=== PATIENT | male | born 1965 | race Caucasian/White ===

== ENCOUNTER → 2020-03-09 15:13 | Outpatient (BNVA) | payer BC, SELFPAY | PROVIDERS: Family Provider Family Medicine; PCP Family Medicine; Visit Provider Podiatrist Foot & Ankle Surgery | DX: M79.671 Pain in right foot (principal) | CPT/HCPCS: 73630 ==

== ENCOUNTER 2024-07-15 14:05 | Emergency (ER) | payer BC, SELFPAY ==
[2024-07-15 14:32] VITALS: BP 140/99; PULSE 91; RESP 16; TEMP 36.6; O2SAT 94
[2024-07-15 16:44] LABS: Basophils # 0.1 10^3/uL (0.0-0.1); Basophils % 1.1 %; Eosinophils # 0.2 10^3/uL (0.0-0.8); Eosinophils % 1.9 %; Hematocrit 51.9 % (37-53); Lymphocytes # 1.5 10^3/uL (0.8-4.8); Lymphocytes % 12.3 %; Mean Corpuscular HGB Conc 32.2 g/dL (30-55); Mean Corpuscular Hemoglobin 29.5 pg (27-33); Mean Corpuscular Volume 91.5 fl (82-101); Mean Platelet Volume 7.8 fL (7.4-10.4); Monocytes # 0.3 10^3/uL (0.2-0.9); Monocytes % 2.6 %; Neutrophils # 9.61 10^3/uL (1.8-7.7); Neutrophils % 81.3 %; Nucleated Red Blood Cells % 0 %; Platelet Count 412 10^3/cmm (157-399); Red Blood Count 5.67 10^6/uL (3.85-5.65); Red Cell Distribution Width 12.3 % (12.1-15.1); White Blood Count 11.83 10^3/uL (3.29-11.43)
[2024-07-15 17:06] VITALS: BP 149/106; PULSE 107; RESP 18; O2SAT 95
--- NOTE | 2024-07-15 17:09 | CTR_ITS ---
PROCEDURE INFORMATION: Exam: CT Head Without Contrast Exam date and time: 07/15/2024 5:38 PM Age: 58 years old Clinical indication: Pain; Headache not specified; Additional info: [place] TECHNIQUE: Imaging protocol: Computed tomography of the head without contrast. Radiation optimization: All CT scans at this facility use at least one of these dose optimization techniques: automated exposure control; mA and/or kV adjustment per patient size (includes targeted exams where dose is matched to clinical indication); or iterative reconstruction. COMPARISON: CT neck w con* [id number] 07/15/2024 5:38 PM RADIATION DOSE METRICS: Total DLP (mGy-cm): 1110.2 FINDINGS: Brain: No evidence of intra-axial or extra-axial hemorrhage. No mass effect or midline shift. Bradshaw-white differentiation is maintained. Basilar cisterns are patent. Cerebral ventricles: No hydrocephalus. Paranasal sinuses: Fluid level within the left maxillary sinus, possibly reflecting sinusitis. Mastoid air cells: The visualized mastoids and middle ears are clear. Bones: Calvarium is intact. No evidence of acute fracture. Soft tissues: No gross soft tissue abnormality. CT/CT head wo con* [id number] IMPRESSION: 1. No acute intracranial abnormality.
[2024-07-15 17:12] LABS: Alanine Aminotransferase 26 U/L (0-41); Albumin Level 4.4 g/dL (3.5-5.2); Alkaline Phosphatase 94 U/L (40-130); Anion Gap 13.2 (5-19); Aspartate Amino Transferase 19 U/L (0-40); Blood Urea Nitrogen 10 mg/dL (6-20); Calcium 9.9 mg/dL (8.5-10.5); Carbon Dioxide 31 mmol/L (22-29); Chloride 101 mmol/L (98-107); Creatinine Clr Calc Pharmacy 119.2044; Globulin 3.3 g/dL (1.3-4.6); Glomerular Filtration Rate 115.4 mL/min (90-130); Glucose 147 mg/dL (65-115); Osmolality Calculated 294 mOsm/kg (285-295); Potassium 4.2 mmol/L (3.5-5.1); Sodium 141 mmol/L (136-145); Total Bilirubin 0.4 mg/dL (0.15-1.2); Total Protein 7.7 g/dL (6.6-8.7)
--- NOTE | 2024-07-15 17:18 | ED_ITS ---
HPI - Head Injury 2 General: Chief complaint: Head Injury Stated complaint: sent from dr guidry/ infection possible in head Time Seen by Provider: 07/15/24 16:32 Source: patient Mode of arrival: ambulatory Limitations: no limitations History of Present Illness: 58-year-old male states that he has had a viral illness he states it started 2 weeks ago states he is improved but he has now been having some headaches along with some jaw pain as well. He states that his headaches come and go his headaches currently a 2 out of 10 he denies any neck stiffness he has not had any fevers this week. He states that he is had some pain and difficulty eating Associated symptoms: Reports neck pain; Deny nausea or vomiting Related Data Previous Rx's ?Medication ?Instructions ?Recorded Sole Supports #1 ea 03/09/20 Allergies Allergy/AdvReac Type Severity Reaction Status Date / Time No Known Allergies Allergy Verified 07/15/24 14:34 Review of Systems 2 Const: Reports: body aches; Denies: fever(s), chills or change in appetite Eyes: Denies: blurry vision ENMT: Denies: throat pain or dental pain Card: Denies: chest pain Resp: Denies: dyspnea GI: Denies: abdominal pain, nausea, vomiting or diarrhea Musc: Reports: neck pain; Denies: back pain Skin/Breast: Denies: rash Neuro: Reports: headache(s) PFSH ED 2 PFSH: Medical History No pertinent past medical history Family History Father Cancer Diabetes Family history of premature coronary artery disease Mother Family history of premature coronary artery disease Social History Smoking and tobacco/nicotine status: never used tobacco/nicotine Alcohol intake: current Alcohol intake frequency: other Alcohol type: other Physical Exam 2 Const: COMMON NORMALS: no acute distress, patient oriented x3 and healthy appearing HENMT: COMMON NORMALS: normocephalic and atraumatic HEAD & SCALP: n ormocephalic and atraumatic THROAT: posterior oropharynx normal Eye: COMMON NORMALS: Equal, round and reactive pupils present and EOMs intact bilaterally PUPIL: Yes Equal, round and reactive pupils present Neck/C-Spine: COMMON NORMALS: full ROM and supple Chest: COMMONS NORMALS: normal inspection of the chest Resp: COMMON NORMALS: normal respiratory effort, No retractions, No use of accessory muscles and clear to auscultation bilaterally AUSCULTATION: clear to auscultation bilaterally Cardio: COMMON NORMALS: regular rate, regular rhythm and No murmurs present (Cardio) RATE: regular rate RHYTHM: regular rhythm Extremity: COMMON NORMALS: normal to inspection and full ROM Neuro: COMMON NORMALS: patient oriented x3, moves all extremities and no focal motor deficits Psych: COMMON NORMALS: mental status grossly normal, Normal thought process present and cooperative THOUGHT PROCESS: Normal thought process present Skin: COMMON NORMALS: no rashes or lesions noted and no wounds GENERAL SKIN EXAM: no rashes or lesions noted Course 2 Vital Signs: Vital signs: Vital Signs Temperature 97.9 F 07/15/24 14:32 Pulse Rate 107 H 07/15/24 17:06 Respiratory Rate 18 07/15/24 17:06 Blood Pressure 136/107 07/15/24 18:05 Pulse Oximetry 93 07/15/24 18:05 Oxygen Delivery Me thod Room Air 07/15/24 14:32 MDM - Head Injury Medcial Decision Making Patient presents here with headache is also been having some neck and jaw tongue pain head CT showed no acute abnormalities blood works normal he has no signs of meningitis here CT did show a lesion on his tongue he states he did bite his tongue today it could be simply from that we will get him follow-up with ENT though his headaches improved here I informed him he is to follow-up with PCP and return to ER if he worsens he understands agrees to plan Medical Records I reviewed the patient's medical records. Lab Data I reviewed the patient's lab results. 07/15/24 16:25 07/15/24 16:[address] 07/15/24 17:09 IMPRESSION: 1. No acute intracranial abnormality. Neck CT 07/15/24 17:19 IMPRESSION: 1. No evidence of acute abnormality. 2. Asymmetric soft tissue prominence of the left tongue base. Correlation with direct visualization/ENT evaluation is recommended to exclude a mucosal lesion. 3. Maxillary sinus fluid levels compatible with sinusitis. 4. Atherosclerotic narrowing of the proximal left ICA secondary to eccentric noncalcified atherosclerotic plaque. Consider follow-up outpatient vascular evaluation. 5. Severe right-sided foraminal stenosis at C3-C4. Consider correlation with follow-up outpatient MRI if there is concern for neural impingement. Laboratory Results WBC 11.83 10^3/uL (3.29-11.43) H 07/15/24 16:25 RBC 5.67 10^6/uL (3.85-5.65) H 07/15/24 16:25 Hgb 16.70 g/dL (11.27-16.99) 07/15/24 16:25 Hct 51.9 % (37-53) 07/15/24 16:25 MCV 91.5 fl (82-101) 07/15/24 16:25 MCH 29.5 pg (27-33) 07/15/24 16: MCHC 32.2 g/dL (30-55) 07/15/24 16:25 RDW 12.3 % (12.1-15.1) 07/15/24 16:25 Plt Count 412 10^3/cmm (157-399) H 07/15/24 16:25 MPV 7.8 fL (7.4-10.4) 07/15/24 16:25 Neut % (Auto) 81.3 % 07/15/24 16:25 Lymph % (Auto) 12.3 % 07/15/24 16:25 [place] % (Auto) 2.6 % 07/15/24 16:25 Eos % (Auto) 1.9 % 07/15/24 16:25 Baso % (Auto) 1.1 % 07/15/24: Neut # (Auto) 9.61 10^3/uL (1.8-7.7) H 07/15/24 16:25 Lymph # (Auto) 1.5 10^3/uL (0.8-4.8) 07/15/24 16:25 [place] # (Auto) 0.3 10^3/uL (0.2-0.9) 07/15/24 16:25 Eos # (Auto) 0.2 10^3/uL (0.0-0.8) 07/15/24 16:25 Baso # (Auto) 0.1 10^3/uL (0.0-0.1) 07/15/24 16:25 Nucleated RBC % (auto) 0 % 07/15/24 16:25 Nucleated RBCs # 0.0 /100WBC 07/15/24 16:25 Sodium 141 mmol/L (136-145) 07/15/24 16:25 Potassium 4.2 mmol/L (3.5-5.1) 07/15/24 16:25 Chloride 101 mmol/L (98-107) 07/15/24 16:25 Carbon Dioxide 31 mmol/L (22-29) H 07/15/24 16:25 Anion Gap 13.2 (5-19) 07/15/24 16:25 BUN 10 mg/dL (6-20) 07/15/24 16:25 Creatinine 0.7 mg/dL (0.7-1.2) 07/15/24 16:25 GFR Calculation 115.4 mL/min (90-130) 07/15/24 16:25 Glucose 147 mg/dL (65-115) H 07/15/24 16:25 Calculated Osmolality 294 mOsm/kg (285-295) 07/15/24 16:25 Calcium 9.9 mg/dL (8.5-10.5) 07/15/24 16:25 Total Bilirubin 0.4 mg/dL (0.15-1.2) 07/15/24 16:25 AST 19 U/L (0-40) 07/15/24 16:25 ALT 26 U/L (0-41) 07/15/24 16:25 Alkaline Phosphatase 94 U/L (40-130) 07/15/24 16:25 Creatine Kinase 58 U/L (39-308) 07/15/24 16:25 C-Reactive Protein 3.0 mg/L (0.0-4.9) 07/15/24 16:25 Total Protein 7.7 g/dL (6.6-8.7) 07/15/24 16:25 Albumin 4.4 g/dL (3.5-5.2) 07/15/24 16:25 Globulin 3.3 g/dL (1.3-4.6) 07/15/24 16:25 All radiology interpretation(s) finalized by discharge Discharge Plan Discharge Patient Disposition: Home Clinical Impression: Headache, Tongue pain Condition: Stable Prescriptions: No Action (DME) Sole Supports See Rx Instructions .Route .MEDSUPPLY Qty: 1 0RF Rx Instructions: As directed Discharge Orders: Discharge ED (Routine); Ordered 07/15/24 Ordered By: Raleigh Elliott Referrals: Kulwinder Meade MD [Physician] - 4-7 days Denny Guidry MD [Primary Care Provider] - Discharge Diet: Advance as tolerated Discharge Activity: Resume usual activity Patient Instructions: General Headache (ED) Print Language: St [place] Coding Level of Care 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
--- NOTE | 2024-07-15 17:19 | CTR_ITS ---
PROCEDURE INFORMATION: Exam: CT Neck With Contrast Exam date and time: 07/15/2024 5:38 PM Age: 58 years old Clinical indication: Other: Lt mandibular pain; Additional info: Jaw pain TECHNIQUE: Imaging protocol: Computed tomography of the neck with contrast. Radiation optimization: All CT scans at this facility use at least one of these dose optimization techniques: automated exposure control; mA and/or kV adjustment per patient size (includes targeted exams where dose is matched to clinical indication); or iterative reconstruction. Contrast material: OMNIPAQUE 350; Contrast volume: 100 ml; Contrast route: INTRAVENOUS (IV); COMPARISON: CT head wo con* [id number] 07/15/2024 5:38 PM RADIATION DOSE METRICS: Total DLP (mGy-cm): 221.8 FINDINGS: Salivary glands: The parotid and submandibular glands are unremarkable. Pharynx: The nasopharynx, oropharynx and hypopharynx are patent. There is nonspecific soft tissue prominence in the region of the tongue base on the left (image 47 of series 4). Larynx: The aryepiglottic folds, glottis and paraglottic soft tissues are grossly unremarkable. Thyroid: Grossly unremarkable. Trachea: The visualized upper airway is patent. Lungs: The visualized lung apices are clear. Lymph nodes: No evidence of adenopathy. Vasculature: The origins of the great vessels are patent. The visualized aortic arch is unremarkable. The visualized carotid and vertebral arteries are grossly patent. Moderate approximately 30% narrowing of the proximal left ICA secondary to eccentric noncalcified atherosclerotic plaque. The visualized internal jugular veins are patent without evidence of thrombosis. Bones/joints: No evidence of acute fracture or subluxation of the cervical spine. Moderate multilevel uncovertebral hypertrophy and facet arthrosis. Severe right-sided foraminal stenosis at C3-C4. Chronic fracture of the tip of the T1 spinous process. Bilateral maxillary sinus fluid levels, [id number]. Moderate ethmoid sinus mucosal thickening bilaterally. CT/CT neck w con* [id number] IMPRESSION: 1. No evidence of acute abnormality. 2. Asymmetric soft tissue prominence of the left tongue base. Correlation with direct visualization/ENT evaluation is recommended to exclude a mucosal lesion. 3. Maxillary sinus fluid levels compatible with sinusitis. 4. Atherosclerotic narrowing of the proximal left ICA secondary to eccentric noncalcified atherosclerotic plaque. Consider follow-up outpatient vascular evaluation. 5. Severe right-sided foraminal stenosis at C3-C4. Consider correlation with follow-up outpatient MRI if there is concern for neural impingement.
[2024-07-15] MEDS: iohexol 350 mg/mL 500 mL Btl (per mL) IV (17:50)
[2024-07-15 17:55] LABS: Creatine Phosphokinase 58 U/L (39-308)
[2024-07-15] MEDS: ketorolac 30 mg/mL INJ 15 MG IVP (17:56)
[2024-07-15] MEDS: sodium chloride 0.9% 1,000 ML 999 ML IV (17:56)
[2024-07-15 18:05] VITALS: BP 136/107; O2SAT 93
--- NOTE | 2024-07-16 07:37 | DCPLANNER ---
sent referral to ENT Dr. Meade for follow up
== END 2024-07-15 19:20 | disposition home or self-care (01) ==
PROVIDERS: Emergency Provider Emergency Medicine; PCP Family Medicine
DX: R51.9 Headache, unspecified (principal); K14.6 Glossodynia
CPT/HCPCS: 36415; 70450; 70491; 80053; 82550; 85025; 86140; 96374; 99285; J1885; J7030

== ENCOUNTER 2024-08-01 07:05 | Outpatient (CLI) | payer BC, SELFPAY ==
--- NOTE | 2024-08-01 07:31 | MR_ITS ---
WS: [id number] MRI NECK WITH CONTRAST TECHNIQUE: Noncontrast axial T1, axial T2 FSE fat sat, coronal T2 fat sat, coronal T1, coronal T1 fat sat, sagittal T2 fat sat, plus contrast enhanced coronal, sagittal, and axial T1 fat sat images obtained. CLINICAL INFORMATION: NEOPLASM UNCERTAIN BEHAVIOR OROPHARYNX COMPARISON: Neck CT FINDINGS: Enhancing tissue at the LEFT LEFT greater than RIGHT tongue base filling the LEFT vallecula suspicious for tongue base neoplasm. In addition, prevertebral enhancing soft tissue anterior to the C3-4 vertebral bodies in the posterior pharynx at this level. Recommend direct visualization and biopsy. Normal glottis and subglottic airway. Normal posterior fossa. Mucosal thickening LEFT greater than RIGHT mastoid air cells. Mucosal thickening in the paranasal sinuses. Mild diffuse eccentric narrowing of the LEFT ICA at the skull base extending to the petrous segment compatible with intramural hematoma with ICA dissection. ICA remains patent. No high-grade flow-limiting stenosis visualized on this study. MR/MR orbit face neck wo/w* [id number] IMPRESSION: 1. 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 Mild narrowing of the ICA although no flow-limiting stenosis. 2. Enhancing tissue at the LEFT greater than RIGHT tongue base extending into and filling the LEFT vallecula suspicious for tongue base neoplasm. In addition prevertebral enhancing soft tissue anterior to the C3-4 vertebral bodies in th e posterior pharynx at this level. Recommend direct visualization and biopsy. 3. Asymmetric enlargement of the LEFT greater than RIGHT submandibular glands although normal enhancement 4. No other changes from the recent CT Notified Alaina CERRATO at 08/02/2024 9:32 AM.
[2024-08-01] MEDS: gadobenate dimeglumine 20 mL vial IV (08:24)
== END 2024-08-01 07:06 | disposition home or self-care (01) ==
PROVIDERS: PCP Family Medicine; Visit Provider Otolaryngology
DX: D37.05 Neoplasm of uncertain behavior of pharynx (principal); I77.71 Dissection of carotid artery; R22.0 Localized swelling, mass and lump, head; K11.1 Hypertrophy of salivary gland; H70.93 Unspecified mastoiditis, bilateral; J34.89 Other specified disorders of nose and nasal sinuses; I65.22 Occlusion and stenosis of left carotid artery
CPT/HCPCS: 70543

== ENCOUNTER 2024-08-02 10:20 | Emergency (ER) | payer BC, SELFPAY ==
[2024-08-02 10:39] VITALS: BP 140/118; PULSE 91; RESP 18; TEMP 36.7; O2SAT 99; BMI 25.8
--- NOTE | 2024-08-02 10:45 | ECG_ITS ---
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 Measurements Intervals Stopover Rate: 90 P: 18 TN: 171 QRS: -13 QRSD: 95 T: 21 QT: 342 QTc: 420 Interpretive Statements SINUS RHYTHM POSSIBLE ANTERIOR MYOCARDIAL INFARCTION , PROBABLY OLD [30 ms Q WAVE IN V3/V4, OR R < 0.2 mV IN V4] No previous ECG available for comparison Electronically Signed On 08-02-2024 19:02:27 CDT by Kip Wilhelm M.D. [email or web address]
[2024-08-02 11:17] LABS: Basophils # 0.1 10^3/uL (0.0-0.1); Basophils % 1.9 %; Eosinophils # 0.3 10^3/uL (0.0-0.8); Eosinophils % 4.5 %; Hematocrit 47.6 % (37-53); Lymphocytes # 1.6 10^3/uL (0.8-4.8); Mean Corpuscular HGB Conc 32.6 g/dL (30-55); Mean Corpuscular Hemoglobin 29.9 pg (27-33); Mean Corpuscular Volume 91.9 fl (82-101); Mean Platelet Volume 8.2 fL (7.4-10.4); Monocytes # 0.5 10^3/uL (0.2-0.9); Monocytes % 8.6 %; Neutrophils # 3.29 10^3/uL (1.8-7.7); Neutrophils % 56.8 %; Nucleated Red Blood Cells % 0 %; Platelet Count 267 10^3/cmm (157-399); Red Blood Count 5.18 10^6/uL (3.85-5.65); Red Cell Distribution Width 12.4 % (12.1-15.1); White Blood Count 5.79 10^3/uL (3.29-11.43)
--- NOTE | 2024-08-02 11:23 | W.ED.NECK ---
HPI - Neck Pain/Injury General: Chief Complaint: Neck Pain/Injury Stated Complaint: left side of head swollen Time Seen by Provider: 08/02/24 10:37 History of Present Illness: 59-year-old man who presents emergency room for an abnormal MRI that was done as an outpatient. He had originally had a CT done because he was having left-sided headaches and neck pain. This was read as having mild stenosis and there was concern for a mass of the tongue. He was sent to ENT who had ordered the MRI. They were contacted with concern for dissection rather than stenosis of his left carotid artery. He says his symptoms have actually resolved over the last few days as far as headache and neck pain go. He still having difficulty eating and swallowing because of the mass in his mouth. No focal motor deficits. He says he has been working out regularly and running. No fevers. No cough. Related Data Home Medications ?Medication ?Instructions ?Recorded ?Confirmed albuterol sulfate 90 mcg/actuation 1 - 2 puff inhalation Q4H 08/02/24 08/02/24 aerosol inhaler clotrimazole 10 mg loretta 10 mg PO .5TIMESDAY 08/02/24 08/02/24 cyclobenzaprine 10 mg tablet 10 mg PO BID 08/02/24 08/02/24 fluconazole 100 mg tablet 100 mg PO DAILY 08/02/24 08/02/24 ofloxacin 0.3 % ear drops 5 drp otic (ear) BID 08/02/24 08/02/24 Previous Rx's ?Medication ?Instructions ?Recorded aspirin 81 mg capsule 81 mg PO DAILY #30 caps 08/02/24 clopidogrel 75 mg tablet (Plavix) 75 mg PO DAILY #30 tabs 08/02/24 metoprolol tartrate 25 mg tablet 12.5 mg (1/2 x 25 mg) PO BID #30 08/02/24 tabs Allergies Allergy/AdvReac Type Severity Reaction Status Date / Time No Known Allergies Allergy Verified 08/02/24 10:49 Review of Systems Narrative: Constitutional symptoms: Negative except as documented in HPI. Skin symptoms: Negative except as documented in HPI. Eye symptoms: Negative except as documented in HPI. ENMT symptoms: Negative except as documented in HPI. Respiratory symptoms: Negative except as documented in HPI. Cardiovascular symptoms: Negative except as documented in HPI. Gastrointestinal symptoms: Negative except as documented in HPI. Genitourinary symptoms: Negative except as documented in HPI. Musculoskeletal symptoms: Negative except as documented in HPI. Neurologic symptoms: Negative except as documented in HPI. Psychiatric symptoms: Negative except as documented in HPI. Endocrine symptoms: Negative except as documented in HPI. PFSH ED PFSH: Medical History No pertinent past medical history Family History Father Cancer Diabetes Family history of premature coronary artery disease Mother Family history of premature coronary artery disease Social History Smoking and tobacco/nicotine status: never used tobacco/nicotine Alcohol intake: current Alcohol intake frequency: other Alcohol type: other Physical Exam Narrative: EXAM NARRATIVE: General: Alert, no acute distress. Skin: Warm, dry. Head: Normocephalic, atraumatic. Neck: Supple, trachea midline. Eye: Extraocular movements are intact. Ears, nose, mouth and throat: mucosa moist. Cardiovascular: Regular, Normal peripheral perfusion. Respiratory: Lungs are clear to auscultation, respirations are non-labored, breath sounds are equal, Symmetrical chest wall expansion. Gastrointestinal: Soft, Nontender, Non distended Musculoskeletal: Normal ROM, no deformity. Neurological: Alert and oriented, No focal neurological deficit observed. Psychiatric: Cooperative, appropriate mood & affect. Course Vital Signs: Vital signs: Vital Signs Temperature 98.1 F 08/02/24 10:39 Pulse Rate 91 08/02/24 10:39 Respiratory Rate 18 08/02/24 10:39 Blood Pressure 140/118 08/02/24 10:39 Pulse Oximetry 99 08/02/24 10:39 Oxygen Delivery Me thod Room Air 08/02/24 10:39 MDM - Neck Pain/Injury Medical Decision Making MRI of the head and neck: There is concern for about a 30% dissection with no significant flow restrictions. I discussed this with radiologist on-call Dr. Sawyer. He read the films. Consultation: I spoke with Dr. Rockwell with neurology here. She does not recommend intervention at this time particular given that his symptoms have resolved. She saw the patient in the emergency room. She recommends no running at this time and no heavy lifting. Consultation: I spoke with [facility] interventional neurologist and their neurosurgeon. Both reviewed films and recommend no immediate intervention. They do recommend a systolic blood pressure less than 120. Heart rate less than 70. They also recommend a repeat head CT in 48 hours Consultation: I spoke with Dr. Mcdowell who is patient's PCP and made him aware of the situation. He will follow-up. He recommends low-dose metoprolol for the patient's blood pressure and heart rate. Lab work: I personally reviewed and interpreted lab work. No leukocytosis. No anemia. No renal failure. Coags are normal. 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 Rockwell will continue to follow with the patient. Dr. Mcdowell is aware and will arrange repeat head CT. - Discharged home - Discussed plan with patient. Answered any questions. - Evaluation and treatment of this problem were appropriate in the emergency setting. Lab Data 08/02/24 11:00 08/02/24 11:00 Laboratory Results WBC 5.79 10^3/uL (3.29-11.43) 08/02/24 11:00 RBC 5.18 10^6/uL (3.85-5.65) 08/02/24 11:00 Hgb 15.50 g/dL (11.27-16.99) 08/02/24 11:00 Hct 47.6 % (37-53) 08/02/24 11:00 MCV 91.9 fl (82-101) 08/02/24 11:00 MCH 29.9 pg (27-33) 08/02/24 11:00 MCHC 32.6 g/dL (30-55) 08/02/24 11:00 RDW 12.4 % (12.1-15.1) 08/02/24 11:00 Plt Count 267 10^3/cmm (157-399) 08/02/24 11:00 MPV 8.2 fL (7.4-10.4) 08/02/24 11:00 Neut % (Auto) 56.8 % 08/02/24 11:00 Lymph % (Auto) 28.0 % 08/02/24 11:00 [place] % (Auto) 8.6 % 08/02/24 11:00 Eos % (Auto) 4.5 % 08/02/24 11:00 Baso % (Auto) 1.9 % 08/02/24 11:00 Neut # (Auto) 3.29 10^3/uL (1.8-7.7) 08/02/24 11:00 Lymph # (Auto) 1.6 10^3/uL (0.8-4.8) 08/02/24 11:00 [place] # (Auto) 0.5 10^3/uL (0.2-0.9) 08/02/24 11:00 Eos # (Auto) 0.3 10^3/uL (0.0-0.8) 08/02/24 11:00 Baso # (Auto) 0.1 10^3/uL (0.0-0.1) 08/02/24 11:00 Nucleated RBC % (auto) 0 % 08/02/24 11:00 Nucleated RBCs # 0.0 /100WBC 08/02/24 11:00 PT 13.10 SECONDS (12.1-14.9) 08/02/24 11:00 INR 0.93 (0.8-1.2) 08/02/24 11:00 APTT 29.2 SECONDS (23.9-36.7) 08/02/24 11:00 Sodium 139 mmol/L (136-145) 08/02/24 11:00 Potassium 4.2 mmol/L (3.5-5.1) 08/02/24 11:00 Chloride 103 mmol/L (98-107) 08/02/24 11:00 Carbon Dioxide 28 mmol/L (22-29) 08/02/24 11:00 Anion Gap 12.2 (5-19) 08/02/24 11:00 BUN 15 mg/dL (8-23) 08/02/24 11:00 Creatinine 0.7 mg/dL (0.7-1.2) 08/02/24 11:00 GFR Calculation 115.0 mL/min (90-130) 08/02/24 11:00 Glucose 108 mg/dL (65-115) 08/02/24 11:00 Calculated Osmolality 289 mOsm/kg (285-295) 08/02/24 11:00 Calcium 9.4 mg/dL (8.5-10.5) 08/02/24 11:00 Total Bilirubin 0.6 mg/dL (0.15-1.2) 08/02/24 11:00 AST 18 U/L (0-40) 08/02/24 11:00 ALT 16 U/L (0-41) 08/02/24 11:00 Alkaline Phosphatase 85 U/L (40-130) 08/02/24 11:00 Total Protein 7.2 g/dL (6.6-8.7) 08/02/24 11:00 Albumin 4.4 g/dL (3.5-5.2) 08/02/24 11:00 Globulin 2.8 g/dL (1.3-4.6) 08/02/24 11:00 All radiology interpretation(s) finalized by discharge Discharge Plan Discharge Patient Disposition: Home Clinical Impression: Carotid artery dissection, Tongue mass Condition: Stable Prescriptions: New aspirin 81 mg capsule 81 mg PO DAILY Qty: 30 0RF metoprolol tartrate 25 mg tablet 12.5 mg PO BID Qty: 30 0RF clopidogrel [Plavix] 75 mg tablet 75 mg PO DAILY Qty: 30 0RF No Action cyclobenzaprine 10 mg tablet 10 mg PO BID fluconazole 100 mg tablet 100 mg PO DAILY clotrimazole 10 mg loretta 10 mg PO .5TIMESDAY ofloxacin 0.3 % drops 5 drp otic (ear) BID albuterol sulfate 90 mcg/actuation HFA aerosol inhaler 1 - 2 puff INHALATION Q4H Discharge Orders: Discharge ED (Routine); Ordered 08/02/24 Ordered By: Lamar Daniel Referrals: Jamilah Rockwell MD [Physician] - (Please call for follow-up appointment with neurology if they do not contact you first. They are going to try to work you in very soon.) Kulwinder Meade MD [Physician] - (Please keep follow-up with ENT concerning the mass on your tongue.) Denny Mcdowell MD [Primary Care Provider] - (You will need follow-up early next week. Dr. Mcdowell is aware. If you do not hear from them on Monday call for follow-up appointment.) Discharge Diet: Advance as tolerated Discharge Activity: Limit activity as instructed Patient Instructions: Opioid Safety, Pain Management Activity Restrictions/Additional Instructions: Is recommended that you keep your blood pressure less than 120 systolic and her heart rate less than 70. Medications have been prescribed for this. Also take Plavix and aspirin as instructed. Dr. Rockwell recommends no running at this time. Also refrain from lifting over 20 pounds. Thank you for choosing [facility] for your healthcare needs today. Please realize this is an emergency room and that we are providing you with a medical screening exam and this may not be complete and all inclusive of all the testing and or work up that you may need to determine your ailment or severity of your illness. You have been screened and evaluated and felt safe for discharge. Health conditions do change or evolve sometimes and as such it is important that you follow up with your Primary Doctor to be re checked, 3-5 days is a general good time frame for follow up. You are always welcome to return to the ED for re assessment if your symptoms are worsening or you have new concerns Print Language: Moroccan Coding Level of Care Code ED Instructor Tap Dancing for Pina Nguyen
[2024-08-02 11:28] LABS: INR 0.93 (0.8-1.2)
[2024-08-02 11:29] LABS: Partial Thromboplastin Time 29.2 SECONDS (23.9-36.7)
[2024-08-02 11:34] LABS: Alanine Aminotransferase 16 U/L (0-41); Albumin Level 4.4 g/dL (3.5-5.2); Alkaline Phosphatase 85 U/L (40-130); Anion Gap 12.2 (5-19); Aspartate Amino Transferase 18 U/L (0-40); Blood Urea Nitrogen 15 mg/dL (8-23); Calcium 9.4 mg/dL (8.5-10.5); Carbon Dioxide 28 mmol/L (22-29); Chloride 103 mmol/L (98-107); Creatinine Clr Calc Pharmacy 117.7327; Globulin 2.8 g/dL (1.3-4.6); Glucose 108 mg/dL (65-115); Osmolality Calculated 289 mOsm/kg (285-295); Potassium 4.2 mmol/L (3.5-5.1); Sodium 139 mmol/L (136-145); Total Bilirubin 0.6 mg/dL (0.15-1.2); Total Protein 7.2 g/dL (6.6-8.7)
[2024-08-02 14:27] VITALS: BP 124/80; PULSE 75; O2SAT 97
--- NOTE | 2024-08-02 18:06 | PM.CONSULT ---
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 He had pneumonia several weeks ago and coughed violently. He coughed so hard he choked. He had to stop his vigorous weightlifting and other exercises. He normally bench presses a maximum of 270 pounds, a normal amount of 225 with repetitions. He was unable to do those things after his cold accelerated and he was coughing so hard. He is lost more than 10 pounds and his muscles have atrophied. He came in here 07/11/2024 reporting that he had had a virus for 2 weeks and was having severe headaches and jaw pain. He says that at that time the pain was intense like a hammer striking him in the left side of the jaw and face. Every time he tried to lay down the pain would prevent him but he could get relief by sitting up. He could not eat. He could not swallow. The left side of his tongue was swollen. That is how he lost so much weight. On 07/15/[address] was unremarkable but CT of the neck was read by virtual radiology as showing asymmetric soft tissue prominence of the left tongue base and direct visualization was recommended. That was done by the nurse practitioner at [facility] and he is scheduled to see Dr. Jewell on 06 August. He returned to the ER today at the request of Dr. Mcdowell because his MRI of the brain ordered by Dr. Mcdowell showed a left carotid dissection. As Dr. Sawyer looked back at the neck CT from 07/15/2024, the left carotid dissection was evident. (Virtual radiology recommended further vascular evaluation of the left ICA). The pain in the left side of his head abated several days ago. He still having trouble because the left side of his tongue is atrophic. He routinely bench presses heavy weights and he plays golf but the cough that he had recently was terrible. Review of Systems Const: Denies: fever(s), change in weight or fatigue Eyes: Denies: change in vision, blurry vision, blind spots, photophobia, eye discomfort, seeing flashes or other (Glaucoma) ENMT: Denies: odynophagia, hoarseness, change in hearing, tinnitus, sinus pain or other (Loss of taste/smell) Card: Denies: chest pain, palpitations, syncope or other (Calf cramps) Resp: Denies: dyspnea, non-productive cough, wheezing or hemoptysis GI: Reports: dysphagia; Denies: abdominal pain, nausea, heartburn, diarrhea, constipation or hematochezia : Denies: urinary frequency or urinary incontinence Musc: Denies: neck pain, muscle weakness or other (Muscle pain) Skin/Breast: Denies: rash, new lesions or breast mass Neuro: Reports: headache(s), Slurred speech present and other (Sleep Apnea); Denies: numbness in extremities, weakness in extremities, sensory changes, difficulty walking or seizure-like activity Psych: Denies: depression, irritability, memory loss, difficulty concentrating or other (Personality changes) Endo: Denies: polyuria, polydipsia, excessive sweating or change in body appearance Krishna/Lymph: Denies: easy bruising, easy bleeding or enlarged lymph nodes Medications/Allergies Home Medications ?Medication ?Instructions ?Recorded ?Confirmed ?Last Taken ?Type albuterol sulfate 90 mcg/actuation 1 - 2 puff inhalation Q4H 08/02/24 08/02/24 Unknown History aerosol inhaler aspirin 81 mg capsule 81 mg PO DAILY #30 caps 08/02/24 Unknown Rx clopidogrel 75 mg tablet (Plavix) 75 mg PO DAILY #30 tabs 08/02/24 Unknown Rx clotrimazole 10 mg loretta 10 mg PO .5TIMESDAY 08/02/24 08/02/24 Unknown History cyclobenzaprine 10 mg tablet 10 mg PO BID 08/02/24 08/02/24 Unknown History fluconazole 100 mg tablet 100 mg PO DAILY 08/02/24 08/02/24 Unknown History metoprolol tartrate 25 mg tablet 12.5 mg (1/2 x 25 mg) PO BID #30 08/02/24 Unknown Rx tabs ofloxacin 0.3 % ear drops 5 drp otic (ear) BID 08/02/24 08/02/24 Unknown History Allergies Allergy/AdvReac Type Severity Reaction Status Date / Time No Known Allergies Allergy Verified 08/02/24 10:49 PFSH Acute PFSH: Medical History No pertinent past medical history Family History Father Cancer Diabetes Family history of premature coronary artery disease Mother Family history of premature coronary artery disease Social History Smoking and tobacco/nicotine status: never used tobacco/nicotine Alcohol intake: current Alcohol intake frequency: other Alcohol type: other Vitals/I&O/Wt Last Vital Signs Temp 98.1 F 08/02/24 10:39 Pulse 75 08/02/24 14:27 Resp 18 08/02/24 10:39 BP 124/80 08/02/24 14:27 Pulse Ox 97 08/02/24 14:27 O2 Del Method Room Air 08/02/24 10:39 Weight last 48 hrs Weight 175 lb Physical Exam Narrative: GENERAL: The patient was well-nourished with a healthy appearance and appropriately groomed. MENTAL STATUS: Orientation was full to 10 of 10 questions of orientation. Speech was fluent without word hesitation. No difficulty following a complex command. The affect was euthymic. CRANIAL NERVES: The left side of the tongue is atrophic. The tongue deviates to the left. Visual schwarz full. Eye movements full. Facial movements symmetric. Shoulder shrug symmetric. 5th cranial nerve intact in all 3 distributions bilaterally to pin and touch. MOTOR: He describes his muscles as atrophic. He is thin and well muscled throughout with 5 out of 5 strength, no drift and rapid fine movements. SENSATION: Pin, touch intact in the four extremities distally. COORDINATION: Moavon-wjvs-aztvgs, muxu-tfms-ajkg and rapid alternating movements were performed smoothly without evidence of tremor or ataxia. Stance was stable with the eyes open, as well as the eyes closed. Tandem gait was normal. DEEP TENDON REFLEXES: 2/4 throughout. GAIT: He was able to walk 10 feet down the marsh, make a pivot and return to his room safely. Stance was stable. HEENT: Normocephalic without dysmorphic features. Conjunctivae were not injected and sclerae were nonicteric. NECK: I cannot appreciate a bruit. CHEST: Clear to auscultation. CARDIOVASCULAR: The heart sounds were normal without murmur or gallop. Regular rate and rhythm. EXTREMITIES: There was no edema or cyanosis. The skin was unremarkable. The spine exhibited normal thoracic kyphosis and normal lumbar lordosis without deformities. Data 08/02/24 11:00 08/02/24 11:00 MRI: Radiologist's impression: MR/MR orbit face neck wo/w* 1. LEFT ICA dissection extending from C3-4 level to the petrous ICA with intramural hematoma. Mild narrowing of the ICA although no flow-limiting stenosis. 2. Enhancing tissue at the LEFT greater than RIGHT tongue base extending into and filling the LEFT vallecula suspicious for tongue base neoplasm. In addition prevertebral enhancing soft tissue anterior to the C3-4 vertebral bodies in the posterior pharynx at this level. Recommend direct visualization and biopsy. 3. Asymmetric enlargement of the LEFT greater than RIGHT submandibular glands although normal enhancement 4. No other changes from the recent CT Notified Alaina JONESP at 08/02/2024 9:32 AM. Dictated By: Pal Sawyer MD Signed By: Pal aSwyer MD Signed Date/Time: 08/02/24 A&P Assessment and plan (1) Carotid artery dissection: Left carotid artery dissection likely sustained as a result of heavy coughing during his recent bout of pneumonia. He has an unusually strong chest wall because of his weight lifting. I am suspicious that the appearance of a mass at the base of his tongue is caused by lower cranial nerve injury from the carotid dissection causing left hypoglossal nerve injury. Reportedly as the dissection improves, these lower cranial neuropathies may resolve (actually I saw patient today with the exact problem and it has resolved). The dissection is high in the proximal carotid. I talked with Dr. Mcdowell. I talked with Dr. Daniel and saw the patient emergently at his request. I talked with Dr. Meade, who is going to see the patient on Monday. I talked with the patient and his significant other. I recommended that he avoid lifting anything over 20 pounds and I ask him please not to resume his normal exercise regimen at this time. Plan to repeat CTA preferably before I see him in my clinic on 12 August. (2) Tongue mass: Plan From up-to-date: NONISCHEMIC LOCAL SYMPTOMS For patients with nonischemic symptoms caused by extracranial or intracranial carotid or vertebral artery dissection, we suggest antiplatelet therapy for prevention of ischemic stroke. Headache and neck pain associated with dissection can usually be managed with simple analgesics such as?acetaminophen. anecdotally,?gabapentin, Nonsteroidal antiinflammatory drugs are generally avoided in patients receiving anticoagulation because of the increased risk of bleeding. There is no specific treatment for other local symptoms of dissection such as Rafael syndrome, lower cranial nerve palsy, audible bruit, or tinnitus, but these may improve with time and vessel healing. PDMP PDMP Reviewed: Not Reviewed Coding Level of Care Code 00496 Diagnoses Carotid artery dissection I77.71 Tongue mass K14.8
== END 2024-08-02 14:29 | disposition home or self-care (01) ==
PROVIDERS: Emergency Provider Emergency Medicine; PCP Family Medicine
DX: K14.8 Other diseases of tongue (principal); I77.71 Dissection of carotid artery
CPT/HCPCS: 80053; 85025; 85610; 85730; 93005; 99284

== ENCOUNTER 2024-08-12 07:46 | Outpatient (CLI) | payer BC, SELFPAY ==
--- NOTE | 2024-08-12 07:48 | CT_ITS ---
WS: [id number] CTA NECK TECHNIQUE: Contrast enhanced CTA of the neck with coronal and sagittal reformatted images and maximum intensity projection (MIP) images. NASCET criteria utilized. CLINICAL INFORMATION: DISSECTION OF COROTID ARTERY COMPARISON: None. DLP: 238.[address] scans at [facility] use at least one of these dose optimization techniques: automated exposure control; mA and/or kV adjustment per patient size (includes targeted exams where dose is matched to clinical indication); or iterative reconstruction. FINDINGS: RIGHT: RIGHT common carotid artery is patent. No significant RIGHT ICA stenosis. RIGHT ICA is patent to the skull base. LEFT: LEFT common carotid artery is patent. Again seen is the LEFT carotid dissection with surrounding intramural hematoma. No significant flow-limiting stenosis. Mild narrowing of the LEFT ICA which remains patent to the skull base. Dissection extends from approximately the C3 to the skull base. LEFT dominant vertebral artery. Smaller but patent RIGHT vertebral artery. Proximal basilar artery is patent. Anterior dominant circulation. Again seen is asymmetry of the LEFT tongue base with filling of the vallecula. There is RIGHT to LEFT deviation of the tongue suspicious for hypoglossal nerve palsy considering history of ICA dissection. Recommend correlation with clinical symptoms duration and direct visualization. Moderate spondylitic changes cervical spine. A few tiny thyroid nodules. CT/CT angio neck 71838 IMPRESSION: 1. Stable LEFT ICA dissection without significant flow-limiting stenosis. 2. RIGHT ICA is patent. 3. Asymmetry at the tongue base described on the prior studies thought to be d ue to hypoglossal nerve palsy considering clinical history. Recommend correlati on with ENT examination
[2024-08-12] MEDS: iohexol 350 mg/mL 500 mL Btl (per mL) IV (08:41)
== END 2024-08-12 07:47 | disposition home or self-care (01) ==
LOC: RAD 07:47
PROVIDERS: PCP Family Medicine; Visit Provider Family Medicine
DX: I77.71 Dissection of carotid artery (principal); R93.89 Abnormal findings on diagnostic imaging of other specified body structures; M47.892 Other spondylosis, cervical region
CPT/HCPCS: 70498

== ENCOUNTER 2024-09-10 15:47 | Outpatient (CLI) | payer BC, SELFPAY ==
--- NOTE | 2024-09-10 15:45 | CT_ITS ---
WS: [id number] CTA HEAD AND NECK TECHNIQUE: Contrast enhanced CTA of the head and neck with coronal and sagittal reformatted images and maximum intensity projection (MIP) images. NASCET criteria utilized. CLINICAL INFORMATION: G50.0 - Trigeminal neuralgia COMPARISON: None. DLP: 1258.[address] scans at [facility] use at least one of these dose optimization techniques: automated exposure control; mA and/or kV adjustment per patient size (includes targeted exams where dose is matched to clinical indication); or iterative reconstruction. FINDINGS: RIGHT: RIGHT common carotid artery is patent. No significant RIGHT ICA stenosis ICA is patent to the skull base. LEFT: LEFT common carotid artery is patent. Improved LEFT ICA dissection with improved intramural hematoma. Small amount of residual surrounding hematoma in the carotid sheath. ICA caliber has improved. LEFT dominant vertebral artery. Smaller but patent RIGHT vertebral artery. INTRACRANIAL CTA: Small but patent basilar artery. Anterior dominant circulation. 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 Normal vascularity to the SECURITIES SALES ASSOCIATE territory bilaterally. Both ICAs are patent at the skull base. Patent anterior communicating artery. Normal vascularity to the SUZANNE and MCA territories bilaterally. Small RIGHT A1 segment. No evidence of proximal flow-limiting stenosis. Mild polyploid mucosal thickening in the paranasal sinuses. CT/CT angio headneck* [id number] IMPRESSION: 1. Improved LEFT ICA dissection described above with a small amount of residua l intramural hematoma. ICA caliber has improved. 2. Otherwise no new findings.
[2024-09-10] MEDS: iohexol 350 mg/mL 500 mL Btl (per mL) IV (16:21)
== END 2024-09-10 15:48 | disposition home or self-care (01) ==
PROVIDERS: PCP Family Medicine; Visit Provider Specialist
DX: G50.0 Trigeminal neuralgia (principal); I77.71 Dissection of carotid artery; R93.0 Abnormal findings on diagnostic imaging of skull and head, not elsewhere classified; J34.89 Other specified disorders of nose and nasal sinuses
CPT/HCPCS: 70496; 70498

== ENCOUNTER 2024-10-31 07:29 | Outpatient (CLI) | payer BC, SELFPAY ==
[2024-10-31 07:50] VITALS: BMI 26.6
--- NOTE | 2024-10-31 07:53 | ECG_ITS ---
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 Interpretive Statements Lung unchanged pre/post procedure; Intraprocedure shortess of breath; Symptoms resoled by discharge PROCEDURE: At the baseline, the patient's blood pressure was 120/84 with a heart rate of 64. The baseline electrocardiogram showed normal sinus rhythm with diffuse nonspecific T wave changes in the anterolateral and inferior leads. Poor R wave progression. The patient exercised for 10 minutes and 9 seconds on a standard David protocol. Patient attained a maximum heart rate of 157 beats per minute(98% of the maximum predicted heart rate) with a blood pressure at the peak exercise of 164/82 mm Hg. The EKG at the peak exercise revealed more prominent ST changes in the inferolateral leads. Patient did not have any chest pain or any significant cardiac arrhythmias with the exercise During the recovery phase, there were no new changes. Blood pressure at the end of the recovery phase was 140/94 mm Hg with a heart rate of 95 per minute. The EKG reverted back to the baseline CONCLUSION: 1. Nonspecific EKG response to treadmill exercise 2. No exercise-induced chest pain or cardiac arrhythmia 3. Good exercise tolerance, attained a maximum of 13.5 METs Electronically Signed On 11-01-2024 22:09:31 CDT by Mark Hess M.D. [email or web address]
--- NOTE | 2024-10-31 07:54 | NMCV_ITS ---
NM nighat perf SPECT r/s* [id number] Aleena Grullon Age: 59 Gender: M : 1965 Exam Date: 10/31/2024 08:53 Ordering Phys: Linden Terrazas MD Technologist: HEATHER Rivera Exam Location: [facility] Indications: cp STRESS TEST Please see separate stress test report in [facility] for full findings IMAGE PROTOCOL Rest/Stress 1 Exercise Day Radiopharmaceutical Dose (mCi) Administration Site Administered by Rest: Tc-99m 10.5 IV Camilla Moreno, RECYCLING PROGRAM MANAGER Sestamibi Stress:Tc-99m 32.8 IV Camilla Whalengle, RECYCLING PROGRAM MANAGER Sestamibi Rest: 10/31/2024 60 Discovery 630 Stress: 10/31/2024 30 Discovery 630 Radiopharmaceutical was injected at 85 % maximum heart rate. Images obtained in supine and prone position. SPECT RESULTS Technical Quality: Good Raw Data Analysis: Normal Image Corrections: No attenuation or motion correction applied Summed Stress Score: 0 Summed Rest Score: 1 Summed Difference Score: 0 PERFUSION FINDINGS Fairly uniform myocardial tracer uptake with no significant Perfusion abnormalities FUNCTIONAL RESULTS (calculated via Gated SPECT) Stress Image LV EF (%): 61 Stress EDV (mL):102 TID: 0.95 Stress ESV (mL):40 FUNCTIONAL FINDINGS: Segmental wall motion analysis revealing no gross wall motion abnormalities IMPRESSIONS 1. Myocardial perfusion imaging revealing fairly uniform myocardial tracer uptake with no significant Perfusion abnormalities 2. Normal LV ejection fraction of 61%. 3. LV wall motion analysis revealing no gross wall motion abnormalities. 4. Normal LV volume with an end-systolic volume of 40 mL Low probability for coronary ischemia, based on the above findings Dr Mark Hess MD FACC (Electronically Signed) Final Date: 31 October 2024 12:58 S
[2024-10-31 09:44] VITALS: BP 146/84; PULSE 98
--- NOTE | 2024-10-31 10:00 | USCV_ITS ---
Aleena Grullon Age: 59 Gender: M : 1965 Exam Date: 10/31/2024 08:30 Ordering Phys: Linden Terrazas MD ([email or web address]) Technologist: DOYLE [place]am [place] [facility] [place]ication: CP, Abnormal EKG BP: 120 / 100 HR: 62 Rhythm: Sinus Technical Quality: Adequate MEASUREMENTS (Male / Female) Normal Values 2D ECHO LV Diastolic Diameter PLAX 5.5 cm 4.2 - 5.9 / 3.9 - 5.3 cm IVS Diastolic Thickness 1.0 cm 0.6 - 1.0 / 0.6 - 0.9 cm IVS Systolic Thickness 1.5 cm LVPW Diastolic Thickness 0.9 cm 0.6 - 1.0 / 0.6 - 0.9 cm LVPW Systolic Thickness 1.3 cm LVOT Diameter 2.0 cm LV Ejection Fraction 2D Teich 66.1 % LV Ejection Fraction MOD 4C 65.2 % LV Ejection Fraction MOD 2C 30.9 % LV Ejection Fraction 2C AL 33.0 % LA Diameter 4.0 cm RA Systolic Volume 4C AL 33.5 ml RA Systolic Volume 4C MOD 30.0 ml LA Sys Volume AL 41.9 cm cubed LA Sys Volume Index AL 20.9 cm cubed/m squared Aorta at Sinotubular Diameter 2.8 cm IVC Diameter 1.5 cm DOPPLER AV Peak Velocity 118.0 cm/s LVOT Peak Velocity 74.0 cm/s AV Area Cont Eq vti 2.2 cm squared AV Area Cont Eq pk 2.0 cm squared MV Peak Velocity 75.0 cm/s MV Area PHT 3.3 cm squared Mitral E to A Ratio 0.9 TR Peak Velocity 79.0 cm/s TR Peak Gradient 2.5 mmHg TV Peak E Velocity 63.0 cm/s PV Peak Velocity 101.0 cm/s FINDINGS Left Ventricle Normal left ventricular size, systolic function and wall thickness, with no regional wall motion abnormalities. Left ventricular ejection fraction is estimated at 60 %. Grade I/IV diastolic dysfunction (abnormal relaxation filling pattern), normal to mildly elevated filling pressures. Right Ventricle The right ventricle is normal in size and function. Right Atrium The right atrium is normal in size. Left Atrium The left atrium is normal in size. Mitral Valve Structurally normal mitral valve without significant stenosis or prolapse. There is no mitral regurgitation. Aortic Valve Structurally normal aortic valve without significant sclerosis or stenosis. There is no aortic regurgitation. Tricuspid Valve Structurally normal tricuspid valve without significant stenosis or regurgitation. Pulmonary artery systolic pressure is normal. Pulmonic Valve Structurally normal pulmonic valve without significant stenosis. There is no pulmonic regurgitation. Pericardium Normal pericardium without effusion. Aorta Normal ascending aorta dimension. IVC The inferior vena cava appears normal. CONCLUSIONS Normal left ventricular size, systolic function and wall thickness, with no regional wall motion abnormalities. Left ventricular ejection fraction is estimated at 60 %. Grade I/IV diastolic dysfunction (abnormal relaxation filling pattern), normal to mildly elevated filling pressures. There is no pericardial effusion. No significant valve abnormalities. ts. Right atrial pressure is around 5 mm of mercury. Linden Terrazas MD (Electronically Signed) Final Date: 21 November 2024 15:25 S
== END 2024-10-31 07:30 | disposition home or self-care (01) ==
PROVIDERS: PCP Family Medicine; Visit Provider Internal Medicine Cardiovascular Disease
DX: R07.9 Chest pain, unspecified (principal); R94.31 Abnormal electrocardiogram [ECG] [EKG]; Z01.818 Encounter for other preprocedural examination; R93.1 Abnormal findings on diagnostic imaging of heart and coronary circulation
CPT/HCPCS: 36415; 78452; 93017; 93306; A9500